=== PATIENT | female | born 1995 ===

== ENCOUNTER → 2020-06-13 | Outpatient (CLI) | payer OTHER ==
[~2020-06-13] MED LIST: DICLEGIS PO; IBU600 MG PO; PRENATAL; UNISOM25 MG PO
== END ==
LOC: ZCOL.LAB
DX: Z20.828 Contact with and (suspected) exposure to other viral communicable diseases (principal)

== ENCOUNTER 2020-06-16 22:04 | Inpatient (IN) | payer OTHER ==
[~2020-06-16] VITALS: Ht 175.3 cm; Wt 75.9 kg
[~2020-06-16 22:04] MED LIST changes: -IBU600 MG PO
--- NOTE | 2020-06-16 22:10 | NUR ---
Pt arrived on unit via wheelchair escorted by and with complaints of contractions every 3-5 minutes working in pain over the last hour. Pt denies any leaking of fluid or vaginal bleeding and reports normal movement. EFM and toco monitors started. Vital signs WNL. SVE by this RN . Information reviewed with Dr. Mcdonnell. Orders for labor admission received. Plan of care reviewed with pt and at the bedside.
[2020-06-16 22:19] VITALS: BP 130/71; PULSE 82; TEMP 98.3
[2020-06-16 23:22] LABS: BASO % 0.3 % (0.0-2.0); EOS # 0.1 (0.0-0.7); EOS % 1.1 % (0-4.0); GRAN # 7.9 (1.4-6.5); GRAN % 72.7 % (42.2-75.2); HEMATOCRIT 32.5 % (37.0-47.0); HEMOGLOBIN 11.1 g/dl (12.5-16.0); LYMPH # 2.1 (1.2-3.4); LYMPH % 18.8 % (20.0-51.0); MEAN CELL VOLUME 88 fl (80.0-100.0); MEAN CORPUSCULAR HEMOGLOBIN 30 pg (27.0-31.0); MEAN CORPUSCULAR HGB CONC 34 g/dl (33.0-37.0); MEAN PLATELET VOLUME 11.3 fl (7.4-10.4); MONO # 0.7 (0.1-0.6); MONO % 6.3 % (1.7-9.3); PLATELET COUNT 201 K/mm3 (130-400); RED BLOOD COUNT 3.68 M/mm3 (4.10-5.30); REDCELL DISTRIBUTION WIDTH-CV 13.7 % (11.5-14.5)
--- NOTE | 2020-06-16 23:35 | NUR ---
2335- LEANDRO Hough at the bedside for epidural placement. Pt sitting up on the edge of the bed. SPO2 monitor started. 2339- FHR not tracing due to maternal position for epidural placement. 2346- Single shot per LEANDRO Hough. See anesthesia records for details. 2350- Test dose per LEANDRO Hough. See anesthesia records for details. 2355- Assisted pt back to supine position with left wedge. EFM and toco montiors adjusted.
[2020-06-16 23:45] VITALS: BP 138/80; PULSE 73
[2020-06-17] VITALS (62 sets, daily range): BP systolic 105–167; BP diastolic 53–87; PULSE 61–107; TEMP 97.2–98.1
--- NOTE | 2020-06-17 07:15 | NUR ---
PT RESTING IN BED. REPOSITIONED PT. FHT'S DIFFICULT TO MONITOR. REPOSITIONED HEART MONITOR. CONTRACTIONS ALSO DIFFICULT TO MONITOR. REPOSITIONED TOCO WELL. DISCUSSED PLAN OF CARE WITH PT AND .
--- NOTE | 2020-06-17 08:00 | NUR ---
CONTRACTIONS REMAIN DIFFICULT TO MONITOR. REPOSITIONED TOCO ONCE AGAIN
--- NOTE | 2020-06-17 08:45 | NUR ---
DR CAICEDO IN AT 0835. SVE UNCHANGED /-2. AROM AT 0837 WITH CLEAR FLUID. CONTRACTIONS PALPATE MODERATE BUT NOT PICKING UP ON MONITOR. REPOSITIONED TOCOL AGAIN.
--- NOTE | 2020-06-17 09:45 | NUR ---
NEW TOCO MONITOR PLACED IN ATTEMPT TO MONITOR CONTRACTIONS BETTER.
--- NOTE | 2020-06-17 10:30 | NUR ---
VERY LARGE AMOUNT OF FLUID EXPELLED WITH SVE (/-2). PERICARE PERFORMED.
--- NOTE | 2020-06-17 11:00 | NUR ---
PT FEELING MORE CRAMPING AND PAIN WITH CONTRACTIONS. ENCOURAGED HER TO PUSH EPIDURAL BUTTON FOR ADDED PAIN CONTROL. DR CAICEDO CALLED HERE AT 1054 FOR STATUS UPDATE ON PT. INFORMED HIM OF SVE AND LARGE GUSH OF FLUID WITH SVE. HE WANTS PT CHECKED AT 1115 AND CALLED WITH UPDATE.
--- NOTE | 2020-06-17 11:45 | NUR ---
SVE BY DONNA GARCIA, . DR CAICEDO CALLED WITH SVE UPDATE AT 3877. HE WILL BE HEADED TO THE HOSPITAL SHORTLY.
--- NOTE | 2020-06-17 12:15 | NUR ---
DR CAICEDO IN AT 1200. SVE REMAINS THE SAME. WANTS PITOCIN INCREASED. PT NAUSEOUS. ZOFRAN 4MG GIVEN.
--- NOTE | 2020-06-17 13:00 | NUR ---
PT PREPPED AND POSITIONED FOR PUSHING. DR CAICEDO AT BEDSIDE FOR DELIVERY. GOOD REMOVED.
--- NOTE | 2020-06-17 13:15 | NUR ---
OF FEMALE AT [address] CAICEDO. NUCHAL CORD X1 REDUCED AFTER DELIVERY OF HEAD. PITOCIN STOPPED AFTER DELIVERY OF INFANT. SPONTANEOUS DELIVERY OF PLACENTA AT 1314. PITOCIN RESTARTED AT 333ML/HR AFTER DELIVERY OF PLACENTA. FUNDAL MASSAGE BY DR CAICEDO AFTER DELIVERY OF PLACENTA AND MANUAL EXPLORATION OF UTERUS.
--- NOTE | 2020-06-17 13:20 | NUR ---
DR CAICEDO AT BEDSIDE. VAGINAL BLEEDING MODERATE WITH SOME CLOTS. DR REQUESTED METHERGINE TO BE GIVEN. 0.2MG GIVEN AT 1318 IN LEFT THIGH. PITOCIN REMAIN AT 333ML/HR.
--- NOTE | 2020-06-17 13:45 | NUR ---
PT STILL EXPERIENCING VOMITING. PHENERGAN 6.25MG GIVEN VIA SLOW IV PUSH.
--- NOTE | 2020-06-17 13:50 | NUR ---
REPAIR OF SUPERFICIAL PERINEAL LACERATION COMPLETE BY DR CAICEDO. FUNDUS FIRM WITH MINIMAL BLEEDING.
[2020-06-18 01:00] VITALS: BP 120/67; PULSE 80; TEMP 98.1
[2020-06-18 08:45] VITALS: BP 105/59; PULSE 79; TEMP 97.9
--- NOTE | 2020-06-18 09:21 | NUR ---
Initial visit; Parents thanked Letter Sorting Machine Operator for offering congratulations and God's blessings for the of their daughter. Letter Sorting Machine Operator thanked family for choosing [facility].
[2020-06-18] MEDS ORDERED: IBU600 MG PO (09:39)
[2020-06-18 11:00] VITALS: BP 107/55; PULSE 66; TEMP 98.1
== END 2020-06-18 16:00 | disposition home or self-care (01) | DRG 807 ==
LOC: LDRO 22:04 → LDR 22:41 → OB 22:41
PROVIDERS: Obstetrics & Gynecology; ADMIT Obstetrics & Gynecology
PROC: 10E0XZZ Delivery of Products of Conception, External Approach (ICD-10-PCS; principal; 2020-06-16)
PROC: 0HQ9XZZ Repair Perineum Skin, External Approach (ICD-10-PCS; 2020-06-16)
PROC: 10907ZC Drainage of Amniotic Fluid, Therapeutic from Products of Conception, Via Natural or Artificial Opening (ICD-10-PCS; 2020-06-16)
DX: O99.02 Anemia complicating childbirth (principal); Z37.0 Single live birth; Z3A.39 39 weeks gestation of pregnancy; D64.9 Anemia, unspecified
CPT/HCPCS: J2210; J2405; J2550; J2590; J2795; J7120